=== PATIENT | female | born 1995 ===

== ENCOUNTER 2017-07-16 13:47 | Emergency (ER) | payer OTHER ==
[2017-07-16 13:57] VITALS: RESP 18; O2SAT 99
--- NOTE | 2017-07-16 14:35 | C.PDOC ---
History Of Present Illness Patient is a 21 y/o F presenting with complaint of chest pain and palpitations when she gets nervous or gets scared. She denies current symptoms. Reports that symptoms are only present when she is nervous or scared. Denies shortness of breath. She reports that her mother told her this was normal but she wanted to be evaluated anyway. Denies fever. Denies family hx of sudden or early cardiac . Time Seen by Provider: 07/16/17 14:00 Chief Complaint (Nursing): Chest Pain Past Medical History Vital Signs: Last Vital Signs Temp 98.1 F 07/16/17 15:03 Pulse 80 07/16/17 15:03 Resp 18 07/16/17 15:03 BP 109/72 07/16/17 15:03 Pulse Ox 99 07/16/17 15:03 Family History: States: No Known Family Hx - Social History Hx Alcohol Use: No Hx Substance Use: No - Immunization History Hx Tetanus Toxoid Vaccination: Yes Hx Influenza Vaccination: No Hx Pneumococcal Vaccination: No Review Of Systems Constitutional: Negative for: Fever, Chills Cardiovascular: Positive for: Chest Pain (when anxious or scared), Palpitations (when anxious or scared). Negative for: Orthopnea, Paroxysmal Noc. Dyspnea, Edema, Light Headedness Respiratory: Negative for: Cough, Shortness of Breath, SOB with Excertion, Wheezing Gastrointestinal: Negative for: Nausea, Diarrhea, Constipation Genitourinary: Negative for: Dysuria Musculoskeletal: Negative for: Neck Pain, Back Pain, Hand Pain Physical Exam - Physical Exam Appears: Well, Non-toxic, No Acute Distress Skin: Normal Color, Warm, Dry Head: Atraumatic, Normacephalic Eye(s): bilateral: Normal Inspection, PERRL, EOMI Throat: Normal Neck: Supple Chest: Symmetrical Cardiovascular: Rhythm Regular Respiratory: Normal Breath Sounds, No Rales, No Rhonchi, No Wheezing Gastrointestinal/Abdominal: Soft, No Tenderness, No Mass, No Distention Back: Normal Inspection ED Course And Treatment O2 Sat by Pulse Oximetry: 99 Medical Decision Making Medical Decision Making: Patient is perc negative. EKG shows NSR at 75bpm with non-specific t wave changes. Cxray negative. Patient instructed to follow-up with PMD Disposition - Disposition Disposition: HOME/ ROUTINE Disposition Time: 14:43 Condition: GOOD Additional Instructions: Follow up with PMD within 2 days for further evaluation. Return to ED if condition worsens. Forms: [employer] ([place]) - Clinical Impression Clinical Impression: Anxiety
--- NOTE | 2017-07-16 14:42 | RAD ---
HISTORY: chest pain COMPARISON: No prior. TECHNIQUE: Chest PA and lateral FINDINGS: LUNGS: No active pulmonary disease. PLEURA: No significant pleural effusion identified. No pneumothorax apparent. CARDIOVASCULAR: Normal. OSSEOUS STRUCTURES: No significant abnormalities. VISUALIZED UPPER ABDOMEN: Normal. OTHER FINDINGS: None. IMPRESSION: No active disease.
[2017-07-16 15:05] VITALS: BP 109/72; PULSE 80; TEMP 98.1
--- NOTE | 2017-07-19 16:33 | CARD ---
APPROVED REPORT EKG Measurement Heart [id number] [id number] <Conclusion> Normal sinus rhythm Nonspecific T wave abnormality Abnormal ECG
== END 2017-07-16 15:05 | disposition home or self-care (01) ==
LOC: C.ER 13:47
DX: F41.9 Anxiety disorder, unspecified (principal)

== ENCOUNTER 2018-05-24 10:06 | Emergency (ER) | payer OTHER ==
--- NOTE | 2018-05-24 10:31 | C.PDOC ---
Time Seen by Provider: 05/24/18 10:24 Chief Complaint (Nursing): Headache Past Medical History Vital Signs: Last Vital Signs Temp 98.5 F 05/24/18 10:08 Pulse 93 H 05/24/18 10:08 Resp 18 05/24/18 10:08 BP 127/63 05/24/18 10:08 Pulse Ox 100 05/24/18 10:08 - Social History Hx Alcohol Use: No Hx Substance Use: No - Immunization History Hx Tetanus Toxoid Vaccination: Yes Hx Influenza Vaccination: No Hx Pneumococcal Vaccination: No ED Course And Treatment O2 Sat by Pulse Oximetry: 100 Disposition - Disposition
--- NOTE | 2018-05-24 10:32 | C.PDOC ---
History Of Present Illness 22 year old female with no past medical history presents to the ER for symptoms of increased thirst, increased hunger, increased frequency of urination for the past month. Patient states randomly throughout the day for the past month she has also felt lightheaded when stands up quickly which only lasts for a few minutes. However she currently denies symptoms of dizziness or lightheadedness or unsteady gait. She denies complaints of headache, dizziness, fever, palpitations, shortness of breath, chest pain, dysuria, diarrhea or constipation. (Susannah Reyes) Chief Complaint (Nursing): Headache Past Medical History - Medical History PMH: No Chronic Diseases Surgical History: No Surg Hx Family History: States: No Known Family Hx - Social History Hx Alcohol Use: No Hx Substance Use: No - Immunization History Hx Tetanus Toxoid Vaccination: Yes Hx Influenza Vaccination: No Hx Pneumococcal Vaccination: No Vital Signs: Last Vital Signs Temp 97.9 F 05/24/18 11:12 Pulse 77 05/24/18 11:12 Resp 16 05/24/18 11:12 BP 102/65 05/24/18 11:12 Pulse Ox 99 05/24/18 11:12 Review Of Systems Constitutional: Negative for: Fever, Chills Cardiovascular: Negative for: Chest Pain, Palpitations Respiratory: Negative for: Cough, Shortness of Breath Gastrointestinal: Positive for: Other (increased hunger and thirst). Negative for: Nausea, Vomiting, Abdominal Pain, Diarrhea Genitourinary: Positive for: Frequency. Negative for: Dysuria, Hematuria, Pelvic Pain Musculoskeletal: Negative for: Neck Pain Skin: Negative for: Rash Psych: Positive for: Anxiety Physical Exam - Physical Exam Appears: Well Skin: Normal Color Head: Atraumatic, Normacephalic Eye(s): bilateral: Normal Inspection, PERRL, EOMI Oral Mucosa: Moist Neck: Normal ROM Cardiovascular: Rhythm Regular Respiratory: Normal Breath Sounds Gastrointestinal/Abdominal: Normal Exam, Soft, No Tenderness Neurological/Psych: Oriented x3, Normal Speech, Normal Cognition, Normal Cranial Nerves Gait: Steady ED Course And Treatment - Laboratory Results Urine POC: Negative O2 Sat by Pulse Oximetry: 100 Medical Decision Making Medical Decision Making: Glucose: 80 Patient counselled to follow up in the [facility]. Patient counselled to have a physical as an outpatient. (Susannah Reyes) Patient seen by resident and then evaluated by me. She reports frequent thirst and hunger and urination. She is requesting to be evaluated for diabetes. Denies dysuria. She has no other complaints. She was informed that FS was WNL but that she needed fasting tests and hgba1c that could be performed in [facility]. was also tested and was negative. No acute complaints, well appearing and referred to clinic (Tressa Woodson) Disposition Discussed With Dr.: Tressa Woodson Doctor Will See Patient In The: ED - Disposition Disposition Time: 10:37 - Disposition Referrals: Ivy Hu MD [Staff Provider] - Disposition: HOME/ ROUTINE Condition: IMPROVED Additional Instructions: Follow-up in the [facility]. Return to ED if condition worsens Forms: Gen Discharge Inst Azeri Print Language: ALBANIAN - Clinical Impression Clinical Impression: Polydipsia, Polyuria - PA / [employer]GE[employer] / Resident Statement / has reviewed & agrees with the documentation as recorded. / has examined the patient and agrees with the treatment plan.
[2018-05-24 11:13] VITALS: BP 102/65; PULSE 77; RESP 16; TEMP 97.9; O2SAT 99
== END 2018-05-24 11:13 | disposition home or self-care (01) ==
LOC: C.ER 10:06
DX: R63.1 Polydipsia (principal); R35.8 Other polyuria